=== PATIENT | female | born 1975 | race Caucasian/White ===

== ENCOUNTER 2017-04-25 09:16 | Day surgery (SDC) | payer OTHER, SELFPAY ==
[~2017-04-25] VITALS: Ht 160 cm; Wt 100.2 kg
[~2017-04-25 09:16] MED LIST: CYCL10 PO; Ferrous Sulfat325 M2 PO; Hydrochlorothia25 MG PO; LOSA25 PO; MAGNESIUM PO; Omeprazole20 M1 PO; RXCYCL10 PO; RXHYDACE PO
== END 2017-04-25 23:00 | disposition home or self-care (01) ==
LOC: ORSCMMR 09:16 → ORD 12:00 → ORSCMMR 12:00
PROVIDERS: Obstetrics & Gynecology
PROC: 0U5B8ZZ Destruction of Endometrium, Via Natural or Artificial Opening Endoscopic (ICD-10-PCS; principal; 2017-04-25 10:30)
PROC: 0UPD8HZ Removal of Contraceptive Device from Uterus and Cervix, Via Natural or Artificial Opening Endoscopic (ICD-10-PCS; principal; 2017-04-25 10:30)
PROC: 0UT74ZZ Resection of Bilateral Fallopian Tubes, Percutaneous Endoscopic Approach (ICD-10-PCS; principal; 2017-04-25 10:30)
DX: Z30.2 Encounter for sterilization (principal); N92.0 Excessive and frequent menstruation with regular cycle; Z30.432 Encounter for removal of intrauterine contraceptive device; I10 Essential (primary) hypertension; J45.909 Unspecified asthma, uncomplicated; G47.33 Obstructive sleep apnea (adult) (pediatric); E66.01 Morbid (severe) obesity due to excess calories; Z68.39 Body mass index [BMI] 39.0-39.9, adult; K21.9 Gastro-esophageal reflux disease without esophagitis; Z79.899 Other long term (current) drug therapy
CPT/HCPCS: 88300; 88302; J0171; J1100; J1885; J2250; J2405; J3010; J7030; J7120

== ENCOUNTER → 2020-10-21 | Outpatient (CLI) | payer OTHER ==
[2020-10-23 15:11] LABS: HPV 16 Negative (Negative); HPV 18 Negative (Negative); HPV OTHER HR TYPES Negative (Negative)
== END | disposition home or self-care (01) ==
LOC: LAB 13:42 → LAB SHORT 13:42
PROVIDERS: Obstetrics & Gynecology
DX: Z01.419 Encounter for gynecological examination (general) (routine) without abnormal findings (principal)
CPT/HCPCS: 87624; G0123